=== PATIENT | female | born 1970 | race Caucasian/White ===

== ENCOUNTER 2022-10-28 12:06 | Outpatient (CLI) | payer OTHER, SELFPAY ==
--- NOTE | ~2022-10-28 | MR_ITS ---
EXAMINATION: MR MRCP wo/w con/w 3D wo ind DATE: 10/28/2022 13:19 INDICATION: Pancreatic cyst TECHNIQUE: Magnetic resonance imaging (MRI) of the abdomen was performed without and with intravenous contrast. Sequences included coronal T2-weighted SS-FSE ARC, coronal T2-weighted FS SS-FSE, coronal T2-weighted 2D FS FIESTA, Water:Coronal LAVA-Flex, sagittal T2-weighted SS-FSE ARC, axial SSFSE ARC, axial 3D DualEcho, axial DWI B=600, axial T1-weighted LAVA, FAT:Coronal LAVA-Flex, and coronal in and opposed phase LAVA-Flex. Thick-slab T2-weighted FRFSE-XL images were obtained for magnetic resonance cholangiopancreatography (MRCP). Maximum intensity projection 3-D reconstructions of the volumetric data were created by the technologist. Postcontrast sequences included a time course of axial T1-weig hted LAVA, FAT:Coronal LAVA-Flex, coronal in and opposed phase LAVA-Flex, and Water:Coronal LAVA-Flex . COMPARISON: None. CONTRAST: Multihance, 17 cc FINDINGS: ABDOMEN MRI: There is loss of hepatic parenchymal signal on opposed phase imaging, consistent with he patic steatosis. The spleen, gallbladder, and adrenal glands are normal. The kidneys are unremarkable . There is a 1.5 x 0.9 cm cystic lesion in the body/tail of the pancreas with thin internal septation . There is minimal enhancement of the septations after contrast administration. There is no definite communication with the main pancreatic duct. There are no pathologically enlarged abdominal lymph nod es. The common hepatic artery arises directly from the abdominal aorta. There are no dilated loops of bowel. A moderate volume of colonic stool is present. ABDOMEN MRCP: There is no intrahepatic or extrahepatic biliary dilatation. The pancreatic duct is nor mal in course and caliber. IMPRESSION: 1. 1.5 cm cystic lesion in the body/tail of the pancreas. The differential diagnosis includes pseudoc yst, intraductal papillary mucinous neoplasm (IPMN), mucinous cystic neoplasm (MCN), and the less com mon serous cystadenoma and neuroendocrine tumor. Correlate for history of pancreatitis. Follow-up pancreas protocol CT or MRI in six months is recommended. Reviewed, dictated and finalized at location [facility] [employer] IMPRESSION: 1. 1.5 cm cystic lesion in the body/tail of the pancreas. The differential diag nosis includes pseudocyst, intraductal papillary mucinous neoplasm (IPMN), muci nous cystic neoplasm (MCN), and the less common serous cystadenoma and neuroend ocrine tumor. Correlate for history of pancreatitis. Follow-up pancreas protocol CT or MRI in six months is recommended.
== END 2022-10-28 12:07 | disposition home or self-care (01) ==
LOC: ANHIMG 12:17
PROVIDERS: PCP Family Medicine
DX: K86.2 Cyst of pancreas (principal); K86.9 Disease of pancreas, unspecified
CPT/HCPCS: 74183; 76376; A9577